=== PATIENT | female | born 1935 | race Caucasian/White ===

== ENCOUNTER 2017-04-29 11:27 | Inpatient (IN) ==
[2017-04-29] MEDS ORDERED: ASPIRIN PO STA (12:46)
[2017-04-29 13:44] LABS: ALLEN TEST YES; BE 1.9 mmoll (-3.0-3.0); BLOOD TYPE ARTERIAL; DRAW SITE R RADIAL; METHB 1.1 % (0.0-1.5); MODALITY CANNULA; O2(CT) 15.7 mL/dL (15.0-23.0); PCO2(98.6) 41 mmHg (35-45); PO2(98.6) 93 mmHg (60-100); SAMPLE BLOOD; SAO2 98.5 % (95.0-100.0); THB 11.6 g/dL (11.5-17.4); pH(98.6) 7.42 (7.35-7.45)
--- NOTE | 2017-04-29 13:46 | Diag Imaging Result Doc PS360 ---
CHEST-PORTABLE - 04/29/2017 INDICATION: sob TECHNIQUE: COMPARISON: 03/16/2017 FINDINGS: Stable right-sided dialysis catheter. Stable sternotomy wires. There is worsening cardiomegaly and pulmonary vascular congestion. There is worsening ill-defined central and bibasilar interstitial infiltrates compatible with pulmonary edema/volume overload. IMPRESSION: Worsening from prior. Electronically signed by Lorenzo Andrea 04/29/2017 1:44 PM
[2017-04-29] MEDS ORDERED: VANCOMYCIN 1 GM/NS 1 GM/250 ML IVPB IV ONE (13:56)
[2017-04-29] MEDS ORDERED: TAZIDIME 2 GM in NS 100 ML IV ONE (13:56)
[2017-04-29 14:03] LABS: BASO% 0.1 % (0.0-0.8); EOS# 0.81 X1000 (0.0-0.7); EOS% 4.3 % (0.0-10.0); HEMATOCRIT 35.2 % (37.0-47.0); HEMOGLOBIN 11.5 g/dL (12.0-16.0); IMM GRAN# 0.07 X1000 (0.0-0.04); IMM GRAN% 0.4 % (0.0-0.5); LYMPH# 0.45 X1000 (1.2-3.4); LYMPH% 2.4 % (20.5-51.1); MANUAL DIFF NEEDED? NO; MCH 29.5 PG (27-31); MCHC 32.7 g/dL (33-37); MCV 90.3 FL (81-99); MONO# 1.06 X1000 (0.11-0.59); MONO% 5.6 % (1.7-9.3); MPV 11.9 FL (7.4-10.4); NEUT% 87.2 % (42.2-75.2); PLT 152 X1000 (130-400)
[2017-04-29 14:11] LABS: INR 1.27; PROTIME 13.5 Seconds (9.2-11.7)
[2017-04-29 14:27] LABS: ALBUMIN 2.6 g/dL (3.5-5.0); CALCIUM 8.5 mg/dL (8.8-10.2); MAGNESIUM 1.8 mg/dL (1.5-2.7); POTASSIUM 4.6 mmol/L (3.5-5.1); TOTAL BILIRUBIN 0.62 mg/dL (0.20-1.00); TOTAL PROTEIN 5.7 g/dL (6.3-8.3)
[2017-04-29] MEDS ORDERED: HEPARIN ONE (14:39)
[2017-04-29] MEDS ORDERED: NS 2,000 ML ONE (14:39)
[2017-04-29] MEDS ORDERED: TIGHT: 0.2 ML/HR MISC PRN (14:44)
[2017-04-29] MEDS ORDERED: HEPARIN IV PRN (14:44)
[2017-04-29] MEDS ORDERED: NS 2,000 ML MISC PRN (14:44)
--- NOTE | 2017-04-29 14:52 | PROVIDER DOCUMENTATION ---
This chart was entered by Leoncio Shen Scribe, acting as scribe for Pippa Fuller MD. HPI-Respiratory General - General Chief Complaint: Shortness of Breath Stated Complaint: SOB,FEVER,UTI Time Seen by Provider: 04/29/17 12:46 Source: patient, family Allergies/Adverse Reactions: Patient Allergies Allergy/AdvReac Type Severity Reaction Status Date / Time No Known Allergies Allergy Verified 04/14/17 12:20 Home Medications: Home Medication List Medication Instructions Recorded Confirmed Last Taken Type Levothyroxine [Synthroid] 50 microgm PO DAILY 12/15/13 04/29/17 04/29/17 09:30 History Rosuvastatin Calcium [Crestor] 20 mg PO HS 02/03/14 04/29/17 04/28/17 20:00 History Clonazepam [Klonopin] 0.5 mg PO QHS #0 tablet 02/08/14 04/29/17 04/28/17 22:30 Rx Aspirin 325 mg PO DAILY 08/24/16 04/29/17 04/28/17 22:30 History Bumetanide 2 mg PO DAILY 08/24/16 04/29/17 04/29/17 09:30 History Carvedilol [Coreg] 12.5 mg PO BID 08/24/16 04/29/17 04/29/17 09:30 History Fenofibric Acid D.r. [Trilipix] 135 mg PO HS 08/24/16 04/29/17 04/28/17 20:00 History Insulin Glargine [Lantus] 20 unit SQ DAILY 08/24/16 04/29/17 04/28/17 22:30 History Insulin Lispro [Humalog] 12 units SQ DAILY 08/24/16 04/29/17 04/28/17 13:00 History Pregabalin [Lyrica] 75 mg PO BID 08/24/16 04/29/17 04/29/17 09:30 History Ranitidine HCl [Zantac 75] 75 mg PO HS 08/24/16 04/29/17 04/28/17 22:30 History Montelukast Sodium 10 mg PO HS 03/16/17 04/29/17 04/28/17 22:30 History Amlodipine Besylate [Norvasc] 5 mg PO DAILY 04/14/17 04/29/17 04/28/17 20:00 History Hydrocodone/Acetaminophen [[place] 1 each PO Q6HR PRN #10 tablet 04/14/17 Unknown Rx 10-325 Tablet] Krill/Om-3/Dha/Epa/Phospho/Ast 1 cap PO DAILY 04/14/17 04/29/17 04/29/17 09:30 History [Megared [place]-3 Krill Oil Sfgl] - History of Present Illness-Resp Nature of Presenting Problem: Patient is a 81 y/o F that presents with one week of shortness of breath, fever/ chills, cough, and weakness. patient was recently treated for UTI with Macrobid. patient has had no n/v, abdominal pain, but reports diarrhea with blood at times. Quality of Pain: reports: tightness Severity in ED: reports: moderate Onset/Duration: reports: gradual, 1 week ago Timing: reports: still present, getting worse Context: reports: other (recent UTI) Cough Quality/Degree: reports: moderate, dry cough Episode Frequency: occasional episodes Current Respiratory Medication Therapy: Initiated see nurses note Modifying Factors: worse with: coughing Associated Symptoms: reports: cough, fever/chills, shortness of breath, short of breath. denies: headache, nasal congestion, nasal drainage, wheezing Review of Systems - Adult - REVIEW OF SYSTEMS - ADULT Constitutional: reports: chills, fever Eyes: reports: no symptoms reported Ears, Nose, Mouth & Throat: denies: ear discharge, ear pain, sinus problem, throat pain, throat swelling Cardiovascular: denies: chest pain, palpitations, syncope Respiratory: reports: cough, shortness of breath. denies: wheezing Gastrointestinal: reports: diarrhea, rectal bleeding. denies: abdominal pain, hematemesis, nausea, vomiting Genitourinary: reports: no symptoms reported Musculoskeletal: reports: muscle weakness. denies: back pain, neck pain Integumentary: reports: no symptoms reported Neurological: reports: no symptoms reported Psychiatric: reports: no symptoms reported Endocrine: reports: no symptoms reported Hematologic/Lymphatic: reports: no symptoms reported Allergic/Immunologic: reports: no symptoms reported All Other Systems: Reviewed and Negative Past History - Adult - PAST MEDICAL HISTORY-ADULT Review of Records: reports: Old Records Reviewed, Nursing Assessment Review, Medications Reviewed Cardiovascular: reports: HTN Genitourinary: reports: dialysis, ESRD, kidney disease Endocrine/Immune: reports: Diabetes, thyroid disorder - PRIOR SURGERIES/PROCEDURES Surgical/Procedure History: reports: appendectomy, EGD, colonoscopy, cholecystectomy, hysterectomy, tonsillectomy - PRIOR HOSPITALIZATIONS Prior Hospitalizations: reports: for other non-related - IMMUNIZATION STATUS Childhood Immunizations: See Nurse Assessment Flu Vaccine: See Nurse Assessment - FAMILY HISTORY Family History: reviewed, not pertinent - SOCIAL HISTORY Smoking: non-smoker Living Situation: family Physical Exam-General - PHYSICAL EXAM-ADULT Initial Vital Signs Reviewed: Yes - CONSTITUTIONAL General Appearance: alert, no apparent distress - EYES Eyes: PERRL/EOMI, pink conjunctivae - HEAD, EARS, NOSE, MOUTH & THROAT HENMT: normocephalic/atraumatic, moist mucous membranes, normal ENT inspection - NECK Neck: full range of motion, normal inspection. negative: lymphadenopathy - RESPIRATORY Respiratory: no respiratory distress, no accessory muscle use, decreased breath sounds (worse on right), crackles, rales. negative: stridor - CARDIOVASCULAR Cardiovascular: no JVD, no murmur, bradycardia - GASTROINTESTINAL (ABDOMEN) Abdominal Exam: normal bowel sounds, non tender, soft, no organomegaly, no pulsatile mass - MUSCULOSKELETAL Back Exam: no CVA tenderness, no vertebral tenderness Extremity: normal range of motion, pedal edema (bilateral lower) - SKIN Integumentary: normal color, warm/dry - NEUROLOGIC Neurologic: otolaryngologist II-XII nml as tested, no motor/sensory deficits - PSYCHIATRIC Psych/Mental Status: normal mood/affect, normal thought content, normal thought process, oriented x 3 Progress - PLAN OF CARE/RESULTS Progress/Plan/Lab Results: Vital Signs - 8 hr 04/29/17 11:31 Temperature 98.1 F Pulse Rate 58 L Respiratory Rate 20 Blood Pressure 119/38 O2 Sat by Pulse Oximetry 93 L Laboratory Results - last 24 hr 04/29/17 13:38 Specimen Type ARTERIAL Sample Site R RADIAL pH 7.42 pCO2 41 pO2 93 HCO3 26.4 H Base Excess 1.9 Oxyhemoglobin 95.3 ABG O2 Sat (Calculated) 15.7 ABG O2 Saturation 98.5 ABG Carboxyhemoglobin 2.20 ABG Methemoglobin 1.1 Miguel Test YES A-a O2 Difference 84.0 Total Hemoglobin 11.6 Lactate 0.70 Liter Flow 3.0 Blood Gas Modality CANNULA FiO2 % 32.0 Orders Category Date Time Status Cardiac Monitoring DIRECTED Care 04/29/17 12:47 Completed Oxygen Therapy- ED Nursing DIRECTED Care 04/29/17 12:47 Completed Saline Loc NOW Care 04/29/17 12:47 Active CHEST-PORTABLE [RAD] Stat Exams 04/29/17 13:28 Completed ABG [RESP] Routine Lab 04/29/17 13:38 Completed BLOOD CULTURE [BLDCUL] Stat Lab 04/29/17 13:56 Received CBC WITH ELECTRONIC DIFF [HEME] Stat Lab 04/29/17 13:25 Results CK PROFILE [SP CHEM] Stat Lab 04/29/17 13:25 Received COMPREHENSIVE METABOLIC PANEL [CHEM] Stat Lab 04/29/17 13:25 Received MAGNESIUM [CHEM] Stat Lab 04/29/17 13:25 Received PRO B-NATRIURETIC PEPTIDE Stat Lab 04/29/17 13:25 Received PROTIME WITH INR [COAG] Stat Lab 04/29/17 13:25 Received PTT [COAG] Stat Lab 04/29/17 13:25 Received TROPONIN T Stat Lab 04/29/17 13:25 Received URINALYSIS W/POSS RFLX CULT-1 [URINALYSIS] Stat Lab 04/29/17 13:29 Uncollected Aspirin Med 04/29/17 12:46 Discontinued 325 mg PO STAT STA CefTAZIDIME [Tazidime] 2 gm Med 04/29/17 13:56 Active 0.9% Sodium Chloride Inj [Ns] 100 ml IV NOW Vancomycin 1 gm/Ns Med 04/29/17 13:56 Active 1 gm in 250 ml IV NOW EKG [EKG] Stat Ther 04/29/17 12:47 Ordered Vital Signs Temp Pulse Resp BP Pulse Ox 04/29/17 11:31 98.1 F 58 L 20 119/38 93 L No Known Allergies Allergy (Verified 04/14/17 12:20) Levothyroxine [Synthroid] 50 microgm PO DAILY 12/15/13 Rosuvastatin Calcium [Crestor] 20 mg PO HS 02/03/14 Clonazepam [Klonopin] 0.5 mg PO QHS #0 tablet 02/08/14 Aspirin 325 mg PO DAILY 08/24/16 Bumetanide 2 mg PO DAILY 08/24/16 Carvedilol [Coreg] 12.5 mg PO BID 08/24/16 Fenofibric Acid D.r. [Trilipix] 135 mg PO HS 08/24/16 Insulin Glargine [Lantus] 20 unit SQ DAILY 08/24/16 Insulin Lispro [Humalog] 12 units SQ DAILY 08/24/16 Pregabalin [Lyrica] 75 mg PO BID 08/24/16 Ranitidine HCl [Zantac 75] 75 mg PO HS 08/24/16 Montelukast Sodium 10 mg PO HS 03/16/17 Amlodipine Besylate [Norvasc] 5 mg PO DAILY 04/14/17 Hydrocodone/Acetaminophen [[place] 10-325 Tablet] 1 each PO Q6HR PRN #10 tablet Krill/Om-3/Dha/Epa/Phospho/Ast [[place]egared [place]-3 Krill Oil Sfgl] 1 cap PO DAILY 04/14/17 Laboratory 04/29/17 13:38 Specimen Type ARTERIAL Sample Site R RADIAL pH 7.42 pCO2 41 pO2 93 HCO3 26.4 H Base Excess 1.9 Oxyhemoglobin 95.3 ABG O2 Sat (Calculated) 15.7 ABG O2 Saturation 98.5 ABG Carboxyhemoglobin 2.20 ABG Methemoglobin 1.1 Miguel Test YES A-a O2 Difference 84.0 Total Hemoglobin 11.6 Lactate 0.70 Liter Flow 3.0 Blood Gas Modality CANNULA FiO2 % 32.0 pt will be admitted to Hospital Result Diagrams: 04/29/17 13:25 - EKG 1 Time of EKG reading by physician:: 11:32 EKG Read and Signed by:: Ba Dennis Jr EKG Interpretation (*Must complete 3 of following elements*): Abnormal Rate: 60 Rhythm: Sinus Rhythm with PACs [place]: normal QRS: RBB NM Interval: normal ST Wave: normal - XRAY 1 XRAY Study: Chest Impression: Abnormal XRAY Interpretation: worsening infiltrates w pulmonary edema/volume overload - CONSULTS/PCP/HOSPITALIST Notification #1 *Consult/PCP/Hospitalist*: Reason/Comments: give antibiotics, admit to PCP Consult Disposition: Admit #2 Consult: Time Discussed: 14:01 Reason/Comments: admit, will write prelim orders Consult Disposition: Admit Departure - Departure Date of Disposition Decision: 04/29/17 Time of Disposition Decision: 14:03 DIAGNOSIS: Chronic kidney disease (CKD) stage G5/A1, glomerular filtration rate (GFR) less than or equal to 15 mL/min/1.73 square meter and albuminuria creatinine ratio less than 30 mg/g Sepsis Qualifiers: Sepsis type: sepsis due to unspecified organism Qualified Code(s): A41.9 - Sepsis, unspecified organism Disposition: ADMITTED INPATIENT Certified Medical Emergency: Emergent Condition: Stable Referrals and Follow-Ups: Desmond Michel Jr, MD [Primary Care Provider] - - Critical Care Note This patient required my direct & personal management of CC.: Yes Total Time (mins): 45 Critical Care Statement: This patient required my direct personal management to treat or rule out processes, the absence of which, could potentiallly result in sudden, clinically significant life or limb threatening deterioration. Attestation - Physician/ GEORGE Attestation The physician spent face to face time with patient:: Yes Advanced Practice Provider documentation review:: Supervising physician onsite and consulted in the evaluation and care of this patient. The physician did have a face to face encounter with the patient. This chart was documented by the indicated scribe, (Leoncio Shen, Scribe) and accurately reflects the services I performed and decisions made by me, Pippa Fuller MD, as attested by the provider's signature.
[2017-04-29 15:05] LABS: URINE SOURCE CATH
[2017-04-29 15:12] LABS: BILIRUBIN URINE NEGATIVE (NEGATIVE); BLOOD URINE SMALL (NEGATIVE); COLOR ORANGE; GLUCOSE URINE NEGATIVE (NEGATIVE); LEUKOCYTES URINE LARGE (NEGATIVE); NITRITE URINE NEGATIVE (NEGATIVE); PH URINE 5.5; PROTEIN URINE 50 mg/dL (NEGATIVE); SP GRAVITY URINE 1.007; TURBIDITY URINE TURBID (CLEAR); UROBILINOGEN URINE NORMAL (NORMAL)
--- NOTE | 2017-04-29 15:12 | EKG Report ---
Test Performed on : 04/29/2017 11:32:20 AM Test Reason : Chest Pain Blood Pressure : / mmHG Vent. Rate : 060 BPM Atrial Rate : 061 BPM P-R Int : 134 ms QRS Dur : 122 ms QT Int : 410 ms P-R-T Axes : -27 029 003 degrees QTc Int : 410 ms Sinus rhythm. with premature atrial complexes. Right bundle branch block Abnormal ECG When compared with ECG of 26-MAR-2017 05:36, premature atrial complexes. are now present T wave inversion no longer evident in Anterior leads Unconfirmed Result
[2017-04-29 15:14] LABS: URINE MICRO REVIEW NEEDED? YES
[2017-04-29 15:16] LABS: UR EPITHELIAL CELLS <10 /HPF (<10); URINE BACTERIA 4+ /HPF; URINE CULTURE NEEDED? YES; URINE RBC <10 /HPF (<10); URINE WBC TNTC /HPF (<10)
--- NOTE | 2017-04-29 16:12 | CONSULTATION ---
DATE OF CONSULTATION: 04/29/2017 REASON FOR ADMISSION: Fever with chills and weakness. REASON FOR CONSULT: End-stage renal disease with assistance with medical management. HISTORY OF PRESENT ILLNESS: Ms. Avilse is an 81-year-old white female who is known to our outpatient services for hemodialysis on Thursday, Thursday, Thursday at the [facility]. She has recently started dialysis in the last 3-4 weeks. She has a fistula to the left forearm that has not matured yet and is currently being followed by Dr. Sidhu. She has a tunneled catheter to the right chest wall and has been receiving dialysis routinely and has been doing well. Unfortunately, the patient states that she has started running a low-grade temperature at home for the last 2 weeks, starting 2 weeks ago Thursday. She states that on Thursday evening when she was at dialysis, she ran a low-grade of 99.4 degrees. She states that she does not remember if she has told the dialysis nurses that she has been running this temperature or not. She has had a positive fever and chills. Positive nausea. No emesis. Some diarrhea. No recent falls. No chest pain. Some increased work of breathing. She states that she does have some blurred vision upon standing every a.m. She does make urine. She has not noticed any foul odor or discoloration to her urine in the last 24-48 hours. She states that these symptoms have gotten worse and that nothing has necessarily helped to improve. PAST MEDICAL HISTORY: Positive for end-stage renal disease with hemodialysis on Thursday, Thursday, Thursday, hypertension, diabetes mellitus type 2. She has hypothyroidism. She has hyperparathyroidism, anemia of chronic disease. PAST SURGICAL HISTORY: Positive for appendectomy, EGD, colonoscopy, cholecystectomy, hysterectomy and tonsillectomy. SOCIAL HISTORY: She lives alone. She has family who are attentive to her care. She is a nonsmoker. No alcohol. No illicit drug use. She has recently lost her at the end of last year, beginning of September and states that at that time is when her condition started to worsen secondary to not taking care of herself. FAMILY HISTORY: No end-stage renal disease. Positive for hypertension and coronary artery disease. CURRENT ALLERGIES: Listed as no known drug allergies. MEDICATIONS: Synthroid, Crestor, Klonopin, aspirin, bumetanide, Coreg, Trilipix , Lantus, Humalog, Lyrica, Zantac, Singulair, Norvasc, [place], and omega-3. Patient also receives Aranesp, Rocaltrol, Proteinex, and IV iron as indicated at the outpatient clinic. REVIEW OF SYSTEMS: Times 10 with pertinent positives listed above in the HPI. LABORATORY: Sodium 133, potassium 4.6, chloride 93, CO2 25, BUN 64, creatinine 4.4, glucose 147. Her anion gap is 15, calcium 8.5, magnesium 1.8. Albumin 2.6. White count 18.88, hemoglobin 11.5, hematocrit 35.2, with a platelet count of 152,000. She has a PT of 13.5 with an INR of 1.27 and a PTT of 34. Her BNP is 12,856. ABGs on room air, PH 7.42, CO2 41, PO2 93 , bicarb 26.4. This was on room air. The patient currently has urine culture and blood cultures currently pending. IMAGING: Her chest x-ray has been completed. It indicates that there is worsening of pulmonary vascular congestion with central and bibasilar interstitial infiltrates, pulmonary edema with fluid volume overload positive. PHYSICAL EXAMINATION: General: This is an 81-year-old white female. She appears chronically ill. She is in no acute distress. Vital Signs: Temperature 98.1 degrees, blood pressure 152/69, heart rate 57, respirations 18, she is on 3 L nasal cannula. Last recorded saturation is 97%. She has only had 50 mL out. This was per straight cath. Skin: Warm and dry. HEENT: Normocephalic, atraumatic. Conjunctivae is pale. She has MARIKA. Mucous membranes are dry. Neck: Supple. Trachea midline. No JVD. Cardiovascular: Regular rate and rhythm. She is without murmur or gallop. Lungs: Diminished breath sounds to the bases. She remains on O2. Equal excursion. Abdomen: Large, round, soft, nontender. Positive bowel sounds. Genitourinary: Not inspected. Minimal void with dialysis assist. Integumentary: No rashes or lesions noted. Skin is warm and dry. Extremities: No edema, no clubbing or cyanosis. Neurological : She is alert and oriented x3. ASSESSMENT AND PLAN: 1. End-stage renal disease. Patient is due for her routine dialysis treatment today. She has already had blood cultures drawn. She has had a chest x-ray completed showing pulmonary edema. No pneumonia noted. She has urinary cultures pending and blood cultures to be resulted. We will plan for patient to have dialysis we will place her on a 2 K bath. She is to dialyze for 3-1/2 hours. We will attempt to pull patient to her dry weight. After treatment we will give 1 g of vancomycin and 2 g of Fortaz to resume with 1 g of vancomycin and 1 g of Fortaz after each dialysis treatment until cultures are resulted. 2. Fever. This is of unknown origin secondary to patient having a tunnel catheter to the right chest wall. Again, we will plan for treatments as mentioned for her dialysis treatment with vancomycin and Fortaz. 3. Electrolytes. These are stable. 4. Acid-base balance. This is stable. 5. Anemia. This remains stable. I would like to thank you for allowing us to follow with this patient. Patient seen, data reviewed, discussed with Kiesha Bailey on 04/29/17. I agree with the above assessment and plan of care. rg Dictated by ANGIE Turpin for Declan Lind MD cc: ANGIE Turpin MD Roger H. Moss Jr, MD MTDD
[2017-04-29] MEDS ORDERED: MORPHINE IV PRN (16:41)
[2017-04-29] MEDS ORDERED: TYLENOL PO PRN (16:41)
[2017-04-29] MEDS ORDERED: ZOFRAN IV PRN (16:41)
[2017-04-29] MEDS ORDERED: NORCO-10 PO PRN (17:30)
[2017-04-29] MEDS: COREG PO SCH ×2 (20:32→20:41)
[2017-04-29] MEDS: LYRICA PO SCH (20:32)
[2017-04-29] MEDS: TRILIPIX PO SCH (20:32)
[2017-04-29] MEDS: KLONOPIN PO SCH (20:32)
[2017-04-29] MEDS: SINGULAIR PO SCH (20:32)
[2017-04-29] MEDS: CRESTOR PO SCH (20:32)
[2017-04-29] MEDS: ZANTAC PO SCH (20:32)
--- NOTE | 2017-04-29 20:39 | CONSULTATION ---
DATE OF CONSULTATION: 04/29/2017 REASON FOR ADMISSION: Fever with chills and weakness. REASON FOR CONSULT: End-stage renal disease with assistance with medical management. HISTORY OF PRESENT ILLNESS: Ms. Aviles is an 81-year-old white female who is known to our outpatient services for hemodialysis on Thursday, Thursday, Thursday at the [facility]. She has recently started dialysis in the last 3-4 weeks. She has a fistula to the left forearm that has not matured yet and is currently being followed by Dr. Sidhu. She has a tunnel catheter to the right chest wall and has been receiving dialysis routinely and has been doing well. Unfortunately, the patient states that she has started running a low-grade temperature at home for the last 2 weeks, starting two weeks ago Thursday. She states that on Thursday evening when she was at dialysis she ran a low-grade of 99.4 degrees. She states that she does not remember if she has told the dialysis nurses that she has been running this temperature or not. She has had positive fever and chills, positive nausea, no emesis. Some diarrhea. No recent falls. No chest pain. Some increased work of breathing. She states that she does have some blurred vision upon standing every a.m. She does make urine. She has not noticed any foul odor or discoloration to her urine in the last 24-48 hours. She states that these symptoms have gotten worse and that nothing has necessarily helped to improve. PAST MEDICAL HISTORY: Positive for end-stage renal disease with hemodialysis on Thursday, Thursday, Thursday, hypertension, diabetes mellitus type 2. She has hypothyroidism. She has hyperparathyroidism. Anemia of chronic disease. PAST SURGICAL HISTORY: Positive for appendectomy, EGD, colonoscopy, cholecystectomy, hysterectomy and tonsillectomy. SOCIAL HISTORY: She lives alone. She has family who is attentive to her care. She is a nonsmoker. No alcohol. No illicit drug use. She has recently lost her at the end of last year at the beginning of September and states that at that time is when her condition started to worsen secondary to not taking care of herself. FAMILY HISTORY: No end-stage renal disease. Positive for hypertension and coronary artery disease. CURRENT ALLERGIES: No known drug allergies. MEDICATIONS: Synthroid. Crestor. Klonopin. Aspirin. Bemitradine. Coreg. Trilipix. Lantus. Humalog. Lyrica. Zantac. Singulair. Norvasc. [place]. Ar[place]-3. Patient also receives Aranesp, Rocaltrol, Proteinex, and IV iron as indicated at the outpatient clinic. REVIEW OF SYSTEMS: Times 10 with pertinent positives listed above in the HPI. LABORATORY: Sodium 133, potassium 4.6, chloride 93, CO2 25, BUN 64, creatinine 4.4, glucose 147. Her anion gap is 15. Calcium 8.5, magnesium 1.8. Albumin 2.6. White count 18.88, hemoglobin 11.5, hematocrit 35.2, with a platelet count of 152,000. She has a PT of 13.5 with an INR of 1.27 and a PTT of 34. Her BNP is 12,856. ABGs on room air: PH 7.42, CO2 41, PO2 93 , bicarb 26.4. This was on room air. The patient currently has urine culture and blood cultures currently pending. IMAGING: Her chest x-ray has been completed. It indicates that there is worsening of pulmonary vascular congestion with central and bibasilar interstitial infiltrates, pulmonary edema with fluid volume overload positive. PHYSICAL EXAMINATION: General: This is an 81-year-old white female. She appears chronically ill. She is in no acute distress. Vital Signs: Temperature 98.1 degrees, blood pressure 152/69, heart rate 57, respirations 18. She is on 3 L nasal cannula. Last recorded saturation is 97%. She has only had 50 mL out. This was per straight. Skin: Warm and dry. HEENT : Normocephalic, atraumatic. Conjunctivae pale. She has MARIKA. Mucous membranes are dry. Neck : Supple. Trachea midline. No JVD. Cardiovascular: Regular rate and rhythm. She is without murmur or gallop. Lungs: Diminished breath sounds to the bases. She remains on O2. Equal excursion. Abdomen: Large, round, soft, nontender. Positive bowel sounds. Genitourinary: Not inspected. Minimal void with dialysis assist. Integumentary: No rashes or lesions noted. Skin is warm and dry. Extremities: No edema. No clubbing or cyanosis. Neurological: She is alert and oriented x3. ASSESSMENT AND PLAN: 1. End-stage renal disease. Patient is due for her routine dialysis treatment today. She has already had blood cultures drawn. She has had a chest x-ray completed showing pulmonary edema. No pneumonia noted. She has urinary cultures pending and blood cultures to be resulted. We will plan for patient to have dialysis. We will place her on a 2K bath. She is to dialyze for 3-1/2 hours. We will attempt to pull patient to her dry weight. After treatment, we will give 1 g of vancomycin and 2 g of Fortaz to resume with 1 g of vancomycin and 1 g of Fortaz after each dialysis treatment until cultures are resulted. 2. Fever. This is of unknown origin secondary to patient having a tunnel catheter to the right chest wall. Again, we will plan for treatments as mentioned for her dialysis treatment with vancomycin and Fortaz. 3. Electrolytes. These are stable. 4. Acid-base balance. This is stable. 5. Anemia. This remains stable. I would like to thank you for allowing us to follow with this patient. Patient seen, data reviewed, discussed with Kiesha Bailey on 04/29/17. I agree with the above assessment and plan of care. rg Dictated by ANGIE Turpin for Declan Lind MD cc: ANGIE Turpin MD Roger H. Moss Jr, MD MTDD
[2017-04-29] MEDS: HUMULIN R SUBQ SCH (23:20)
--- NOTE | 2017-04-29 23:38 | HISTORY AND PHYSICAL ---
CHIEF COMPLAINT: Fever. PRESENT ILLNESS: The patient is an 81-year-old white female dialysis patient who had been treated for a urinary tract infection recently at the office and grew out E. coli that was sensitive to all antibiotics tested and had been placed on Macrobid. She tells me she has been taking it because she has spiked 103 temp this morning at home and came to the emergency room. Patient has had CHF as well. The patient has been short of breath today. Apparently has had some bloody diarrhea as well. PAST HISTORY: Hyperlipidemia, CAD, AODM, hypothyroidism, peripheral neuropathy, chronic kidney disease stage 5, vitamin B12 deficiency, peripheral vascular disease with her carotids, chronic anemia, mild stress incontinence. MEDICATIONS: Please see medication list. SURGICAL HISTORY: Includes appendectomy, EGD, colonoscopy, cholecystectomy, hysterectomy and tonsillectomy. SOCIAL HISTORY: She is a nonsmoker. FAMILY HISTORY: Unrevealing. REVIEW OF SYSTEMS: Neurological: Denies headaches, seizures, visual problems, hearing problems. Pulmonary: Has been short of breath but with no cough. A chest x-ray did show pulmonary congestion consistent with congestive heart failure, pulmonary edema. Cardiovascular: Denies any chest pain. Gastrointestinal: Denies any hematochezia, hematemesis, melena. Did report in the emergency room that she had some diarrhea with blood. Genitourinary: Has mild urinary incontinence. Musculoskeletal: Has had some back pains and osteoarthritis. Back pain was treated recently with steroids and she is not having any right now. Psychiatric: Has had no depression or anxiety. PHYSICAL EXAMINATION: VITAL SIGNS: Temp 98.1 degrees Fahrenheit, pulse 58 and regular, respirations 20, blood pressure 119/38, O2 saturations 93% on room air. Blood gas showed a pH of 7.42, pCO2 41, PO2 93 on 32% FiO2. EKG shows sinus rhythm with PACs and right bundle branch block. Chest x-ray showed pulmonary edema and fluid overload. HEENT: She is normocephalic. EOMs intact. PERRLA. Throat clear. LUNGS: Have a few rales in the bases bilaterally. HEART: Regular rate and rhythm without murmurs, gallops, or friction rubs to a bradycardia. ABDOMEN: Soft with active bowel sounds. No organomegaly or tenderness. PELVIC: Exam is deferred. RECTAL: Exam deferred. BREAST: Exam deferred. INTEGUMENT: Shows no lesions consistent with melanoma or skin cancer. EXTREMITIES: She does have 3+ pitting edema of the lower extremities. NEUROLOGICAL: Exam is intact grossly. LABORATORY STUDIES: White count is 18,800. ASSESSMENT: 1. Possible sepsis. 2. Urinary tract infection. Urinalysis showed WBCs too numerous to count. 3. Pulmonary edema/congestive heart failure. 4. Renal failure. SECONDARY DIAGNOSES: 1. Hypertension. 2. Hypothyroidism. 3. Diabetes mellitus. 4. Coronary artery disease. 5. Peripheral vascular disease. PLAN: We will start on vancomycin and Fortaz. Have consulted Nephrology and Infectious Disease. We will try to get stool cultures. Also should be noted the patient wants to be Level 1 no code blue and she is competent. cc: Desmond Michel Jr, MD
[2017-04-30 07:15] LABS: MANUAL DIFF NEEDED? NO
[2017-04-30 07:25] LABS: BASO% 0.2 % (0.0-0.8); EOS# 1.02 X1000 (0.0-0.7); HEMOGLOBIN 11.2 g/dL (12.0-16.0); IMM GRAN# 0.03 X1000 (0.0-0.04); IMM GRAN% 0.2 % (0.0-0.5); LYMPH# 0.75 X1000 (1.2-3.4); LYMPH% 5.1 % (20.5-51.1); MCH 29.2 PG (27-31); MCV 91.1 FL (81-99); MONO# 0.77 X1000 (0.11-0.59); MONO% 5.3 % (1.7-9.3); MPV 11.4 FL (7.4-10.4); NEUT% 82.2 % (42.2-75.2); PLT 170 X1000 (130-400); RBC 3.84 XMIL (4.2-5.4)
[2017-04-30 07:44] LABS: ALBUMIN 2.7 g/dL (3.5-5.0); POTASSIUM 3.7 mmol/L (3.5-5.1)
[2017-04-30] MEDS ORDERED: INSULIN PEN NEEDLES ONE (08:23)
--- NOTE | 2017-04-30 09:08 | PROGRESS NOTE ---
DATE: 04/30/2017 SUBJECTIVE: Ms. Aviles is resting quietly in bed. She states that she is feeling much better. She actually felt better after her dialysis treatment yesterday. She denies any chest pain or increased work of breathing. She states that she is still having chills. OBJECTIVE: Vital Signs: Temperature is 98.5 degrees, blood pressure 145/96, heart rate 69, respirations are 14. She is on room air. Last recorded 90%. She has had 450 in, 2.7 L off on dialysis with 15 mL of straight cath yesterday in the ER. Laboratory Data: Sodium 140, potassium 3.7, chloride is 98, CO2 29, BUN 42, creatinine 3.3, glucose 89, her anion gap is 13, calcium is 8, phosphorus 3.9, albumin 2.7. White count 14.57, hemoglobin 11.2, hematocrit 35, platelet count 170,000. Physical Examination: General: This is an 81-year-old, white female. She is currently resting in bed. She is in no acute distress, though she does appear chronically ill. Skin: Warm and dry. HEENT: Normocephalic, atraumatic. Conjunctivae are pale. She has MARIKA. Mucous membranes are dry. Neck: Supple. Trachea midline. No JVD. Cardiovascular: She is regular rate and rhythm. She is without murmur or gallop. Lungs: Clear to auscultation anteriorly. Equal excursion. Abdomen: Round, soft, nontender. Positive bowel sounds. Extremities: Have no edema. No clubbing or cyanosis. Genitourinary: Not inspected. Minimal void with dialysis assist. Neurological: She is alert and oriented x3. ASSESSMENT AND PLAN: 1. End-stage renal disease. Patient had her routine dialysis treatment yesterday. She had 2.7 L removed. She is in no acute distress today. No further indications for intervention. 2. Fever of unknown origin. Patient does have a tunneled catheter to the right chest wall. Her fistula was placed on 03/26/[address] Sidhu. This is only 5 weeks old. We still have blood cultures and urine cultures pending. She remains on renal dosed antibiotics as precautionary. 3. Electrolytes and acid-base balance. These are stable. 4. Anemia. This remains stable. I would to thank you for allowing us to follow with this patient. Patient seen, data reviewed, discussed with Kiesha Bailey on 04/30/17. I agree with the above assessment and plan of care. rg Dictated by ANGIE Turpin for Declan Lind MD cc: ANGIE Turpin MD Roger H. Moss Jr, MD MTDD
--- NOTE | 2017-04-30 09:08 | CONSULTATION ---
DATE OF CONSULTATION: 04/30/2017 CONCLUSION: The patient has been having fever and chills for the past 3-4 weeks. I think this is from an infection originating from his dialysis catheter. Dr. Michel informed me that the patient has grown E. coli from her urine. The patient passes very little urine and she had not been having dysuria, so I doubt the urinary tract infection is the cause of the patient's fever and chills. The patient had 1 day where she had 1 loose stool with some red blood in it. This occurred only once and she is not having any problem now so I doubt she has a GI tract infection or involvement by Clostridium difficile. The patient's chest x-ray does show bilateral infiltrates but it appears the x-ray is most compatible with pulmonary edema rather than pneumonia. RECOMMENDATIONS: I agree with decision to treat the patient with vancomycin and ceftazidime pending culture results. Dr. Michel told me that he had a culture from the urine and E coli which was susceptible to all the antibiotics tested so that even if the urinary tract infection is not causing the patient's fever and chills, she will be treated for it a based on the fact that currently she is on ceftazidime. DISCUSSION: The patient approximately 3-4 weeks ago started having fever and chills. As mentioned above, she had 1 day where she had a loose stool with some blood in it but this has not recurred. She has had her urine cultured and it grew E. coli but the patient says she is not having any dysuria or flank pain. LABORATORY STUDIES: Thus [place] [address] ,hemoglobin 11.5, and platelet count 152,000. Chest x-ray is most compatible with pulmonary edema. Creatinine is 4.4, GFR is 10. The ALT is 39. PAST MEDICAL HISTORY: Ob-Cook Night History: She is a 2 para 2 AB 0. She has had a hysterectomy. PREVIOUS HOSPITALIZATIONS AND OPERATIONS: She has had labor and deliveries, a hysterectomy, a cholecystectomy, coronary artery bypass grafting and and insertion of a right tunneled dialysis catheter. MEDICAL DISEASES: Positive for coronary artery disease, skin cancer hypothyroidism ostial arthritis neuropathy of the feet and hands. The patient has end-stage renal disease and dialyzes 3 times a week. INFECTIOUS DISEASE HISTORY: Positive for pneumonia and UTI. FAMILY HISTORY: Positive for hypertension and cancer. SOCIAL HISTORY: [place] She is a . She lives alone. She does not have any pets. ALLERGIES: She is not allergic to any medications. HOME MEDICATIONS: 1. Crestor 2. Zantac 3. Lyrica 4. Montelukast 5. Synthroid 6. Humalog 7. Lantus 8. Hydrocodone 9. Trilipix 10. Klonopin 11. Coreg 12. Bumetanide 13. Aspirin 14. Amlodipine PHYSICAL EXAMINATION: Vital Signs: Temperature is 98.5 degrees, pulse 69, respirations 14, blood pressure 1445/96. General: This is a somewhat ill-appearing elderly female. She is in no acute distress at this time. HEENT: She can hear my spoken words and see near objects. I did not notice any lesions in her mouth. Neck: No meningismus. Thorax: Patient has a dialysis catheter present on the right side. The site is not erythematous or swollen. Lungs: Clear to auscultation. Cardiovascular: Regular heart rate. Abdomen: Soft and flank soft and nontender. Neurologic: Patient is alert. She can move her extremities. There is no tremor. Her sensation is intact to touch. Her memory, as regarding her medical history seemed to be good. REVIEW OF SYSTEMS: Eyes and Ears: Patient denies difficulty hearing or seeing. Neck: No stiffness. Respiratory: Patient states for the past year she is had dyspnea. She is not coughing or having chest pain. Cardiovascular: No chest pain or palpitations. GI: No nausea or vomiting. As mentioned above, 2 days ago she had 1 loose stool with some blood in it and none since. Genitourinary: Patient passes very little urine because she is on dialysis. She told me that it does not burn or sting when she does pass it now. Endocrine: Patient has hypothyroidism and she is diabetic. Neurologic: Patient says she has paresthesias in her feet and hands man tested by numb or tingling. She does not have any seizures. Joints and Muscles: She does not have any swollen joints or myalgias. Thank you for the consult. cc: MD Desmond Aguilar Jr, MD
--- NOTE | 2017-04-30 09:26 | PROGRESS NOTE ---
DATE: 04/30/2017 SUBJECTIVE: Patient says she feels a little short of breath this morning. She felt better with her breathing after dialysis yesterday but this morning has become a little bit more short of breath. She has had a history of congestive heart failure and did come in, in pulmonary edema. She has had no fever since she has been here in the hospital but had a 103 temperature at home. OBJECTIVE: Vital Signs: Blood pressure is 145/96, respirations 18, pulse 69, temperature 98.5 degrees Fahrenheit. HEENT: She is normocephalic. EOMs intact. PERRLA. Throat clear. Lungs: Lungs sound fairly clear to auscultation. Heart: Regular rate and rhythm without murmurs, gallops, or friction rubs. Abdomen: Soft. Active bowel sounds. No organomegaly or tenderness. Neurological: Examination intact grossly. Laboratory Data: ProBNP was a little over 12,000. ASSESSMENT: 1. Rule out sepsis. 2. Urinary tract infection. 3. Pulmonary edema/congestive heart failure. 4. Coronary artery disease. PLAN: We will get an echocardiogram and a chest x-ray. We will evaluate to see if she needs to be back on oxygen. Her O2 saturation was 90%. cc: Desmond Michel Jr, MD
[2017-04-30] MEDS: HUMULIN R SUBQ SCH ×4 (11:30→21:17)
--- NOTE | 2017-04-30 11:30 | Diag Imaging Result Doc PS360 ---
EXAM: CHEST-PORTABLE INDICATION: chf TECHNIQUE: One view COMPARISON: 04/29/2017 FINDINGS: The right Vas-Cath is in stable position. The interstitial edema and pulmonary venous congestion appears to have improved slightly during the interval. No new consolidations are appreciated. The cardiac silhouette is stable. IMPRESSION: Interval improvement of the mild pulmonary edema and pulmonary venous congestion. Electronically signed by Min Salguero 04/30/2017 11:28 AM
[2017-04-30] MEDS: FISH OIL CONCENTRATE PO SCH (11:53)
[2017-04-30] MEDS: COREG PO SCH ×2 (11:53→21:18)
[2017-04-30] MEDS: ASPIRIN PO SCH (11:53)
[2017-04-30] MEDS: BUMEX PO SCH (11:53)
[2017-04-30] MEDS: HUMALOG SUBQ SCH (11:54)
[2017-04-30] MEDS: SYNTHROID PO SCH (11:56)
[2017-04-30] MEDS: NORVASC PO SCH (11:57)
[2017-04-30] MEDS: LYRICA PO SCH ×2 (11:59→21:18)
[2017-04-30] MEDS: LANTUS SUBQ SCH (21:17)
[2017-04-30] MEDS: TRILIPIX PO SCH (21:18)
[2017-04-30] MEDS: ZANTAC PO SCH (21:18)
[2017-04-30] MEDS: CRESTOR PO SCH (21:18)
[2017-04-30] MEDS: KLONOPIN PO SCH (21:18)
[2017-04-30] MEDS: SINGULAIR PO SCH (21:18)
--- NOTE | 2017-05-01 04:46 | ECHO REPORT ---
ORDER DATE: 04/30/2017 MEASUREMENTS: Left ventricular end-diastolic diameter 4.9, systolic diameter 2.7, septal thickness 1.1, posterior wall thickness 1.1, left atrium 5.6, aortic root 2.5. SUMMARY: 1. Adequate quality study. 2. Mild sclerosis of trileaflet aortic valve demonstrated, with adequate aortic valve opening evident. Peak gradient across the aortic valve is 12 mmHg. Mitral, tricuspid, and pulmonic valves are without structural abnormality, with mild mitral regurgitation, moderate tricuspid regurgitation, and mild pulmonic insufficiency. Estimated systolic PA pressure by Doppler is 60-65 mmHg. The aortic root is normal in size. 3. Normal left ventricular chamber size with borderline concentric left hypertrophy is demonstrated. Estimated left ejection fraction is greater than 70%. No regional wall motion abnormalities are evident. Moderate left atrial enlargement is demonstrated. Right atrium and right ventricle are normal size, with normal right ventricular systolic function. 4. No pericardial effusion. 5. Appearance of inferior vena cava suggests normal central venous pressure. 6. Intravenous echo contrast agent Definity was administered during study to further enhance endocardial definition for purposes of left ventricular ejection fraction assessment and regional wall motion evaluation. cc: MD Desmond Hurtado Jr, MD
[2017-05-01] MEDS: HUMULIN R SUBQ SCH ×2 (06:25→13:16)
[2017-05-01 06:26] LABS: MANUAL DIFF NEEDED? NO
[2017-05-01 06:32] LABS: BASO% 0.2 % (0.0-0.8); EOS# 1.33 X1000 (0.0-0.7); EOS% 13.4 % (0.0-10.0); HEMATOCRIT 34.2 % (37.0-47.0); HEMOGLOBIN 11.2 g/dL (12.0-16.0); IMM GRAN# 0.02 X1000 (0.0-0.04); IMM GRAN% 0.2 % (0.0-0.5); LYMPH# 1.14 X1000 (1.2-3.4); LYMPH% 11.5 % (20.5-51.1); MCH 29.3 PG (27-31); MCHC 32.7 g/dL (33-37); MCV 89.5 FL (81-99); MONO# 0.78 X1000 (0.11-0.59); MONO% 7.9 % (1.7-9.3); MPV 11.3 FL (7.4-10.4); NEUT% 66.8 % (42.2-75.2); PLT 180 X1000 (130-400); RBC 3.82 XMIL (4.2-5.4)
[2017-05-01 06:59] LABS: ALBUMIN 2.5 g/dL (3.5-5.0); CALCIUM 8.3 mg/dL (8.8-10.2); POTASSIUM 4.4 mmol/L (3.5-5.1)
[2017-05-01] MEDS ORDERED: NS 2,000 ML MISC PRN (07:01)
[2017-05-01] MEDS ORDERED: TIGHT: 0.2 ML/HR MISC PRN (07:01)
[2017-05-01] MEDS ORDERED: HEPARIN IV PRN (07:01)
[2017-05-01] MEDS ORDERED: HEPARIN ONE ×2 (07:35→08:40)
[2017-05-01] MEDS ORDERED: NS 2,000 ML ONE ×2 (07:35→08:40)
[2017-05-01] MEDS ORDERED: VANCOMYCIN 1 GM/NS 1 GM/250 ML IVPB IV SCH (09:00)
--- NOTE | 2017-05-01 09:09 | PROGRESS NOTE ---
DATE: 05/01/2017 SUBJECTIVE: She is feeling better. She has not had any fevers or chills. No shortness of breath on room air. OBJECTIVE: Vital Signs: Blood pressure 141/42, heart rate 57, respirations 20, afebrile. General: On physical exam, no acute distress. Skin: Warm and dry. Eyes: Conjunctivae are pink. Neck: Neck veins are not appreciated. Heart: Regular without gallops or murmurs. Lungs: Have equal breath sounds. No crackles or wheezes. Abdomen: Soft, nontender. Bowel sounds are present. Extremities: Have 2+ edema. No clubbing or cyanosis. LABORATORY DATA: Sodium 137, potassium 4.4, chloride 94, bicarbonate 27, BUN 67, creatinine 4.2, hemoglobin 11.2. IMPRESSION: 1. Acute febrile illness. Blood cultures are negative and stool cultures negative. Urine is growing Escherichia coli which is sensitive to both oral and intravenous antibiotics and extended spectrum beta lactamase-negative. 2. Extended spectrum beta lactamase-negative. From my perspective, she can certainly be discharged home on oral antibiotics. She can take Bactrim DS one daily to complete her course. If you desire intravenous antibiotics, then please contact me and we can arrange for that at the outpatient clinic. 3. End-stage renal disease. She remains somewhat volume overloaded, so we will work on lowering her dry weight again today. However, she is on room air and tolerating it well. So, again okay for discharge from my perspective. 4. Electrolytes and acid-base in target. 5. Anemia in target. cc: MD Desmond Nino Jr, MD
[2017-05-01] MEDS ORDERED: TAZIDIME 1 GM in NS 50 ML IV SCH (10:00)
[2017-05-01] MEDS: FISH OIL CONCENTRATE PO SCH (13:16)
[2017-05-01] MEDS: COREG PO SCH (13:16)
[2017-05-01] MEDS: NORVASC PO SCH (13:16)
[2017-05-01] MEDS: ASPIRIN PO SCH (13:16)
[2017-05-01] MEDS: LYRICA PO SCH (13:16)
[2017-05-01] MEDS: SYNTHROID PO SCH (13:16)
[2017-05-01] MEDS: BUMEX PO SCH (13:17)
[2017-05-01] MEDS: LANTUS SUBQ SCH (13:21)
[2017-05-01] MEDS: HUMALOG SUBQ SCH (13:22)
[2017-05-01 13:54] VITALS: BP 152/56
--- NOTE | 2017-05-01 16:20 | DISCHARGE SUMMARY ---
ADMISSION DATE: 04/29/2017 DISCHARGE DATE: 05/01/2017 FINAL DIAGNOSES: 1. Urinary tract infection. 2. Fever. 3. Pulmonary edema. 4. Renal failure. 5. Adult onset diabetes mellitus. 6. Hypothyroidism. 7. Coronary artery disease. 8. Peripheral vascular disease carotids. 9. Chronic anemia. 10. Hyperlipidemia. CONSULTATIONS: 1. Declan Lind MD of Nephrology. 2. Antonio Mathew MD of Infectious Disease. DISCHARGE MEDICATIONS: We will discharge home on home medications plus Bactrim DS 1 p.o. b.i.d. for 10 days. HISTORY OF PRESENT ILLNESS: The patient is an 81-year-old, white female on dialysis who came in with fluid overload and fever up to 103 degrees Fahrenheit at home. She had been on Macrobid for a urinary tract infection that grew out E. coli that we have been treating at the office. The culture report at that time showed that it was sensitive to all antibiotics and she had been started on Macrobid. We thought that she might have an infected catheter for her dialysis when she came in but we repeated her urinalysis and she had WBCs too numerous to count. Urine culture again grew E. coli but it was not sensitive to Macrobid. Her blood cultures were negative. I feel like this was probably just her urinary tract infection. It is sensitive to Bactrim DS. She has been afebrile since she has been at the hospital. She had been placed on IV antibiotics initially and has responded well. We were worried about sepsis and catheter infection but I believe this was just a UTI though 103 temp may have meant that she had bacteremia but it was not caught on blood cultures. She seems to be doing well at this time and would like to go home. PHYSICAL EXAMINATION ON DISCHARGE: HEENT: She is normocephalic. PERRLA. Throat clear. Lungs: Clear to auscultation and percussion without rhonchi, rales, or wheezes which is an improvement. When she came in she had fluid overload and pulmonary edema but after dialysis this was much better. Cardiovascular: Heart is regular rate and rhythm without murmurs, gallops, or friction rubs. Abdomen: Soft. Active bowel sounds. No organomegaly or tenderness. Neurologic Examination: Intact grossly. HOSPITAL COURSE: Please note that I went ahead and did an echocardiogram because her proBNP was over 12,000 and it was essentially normal. With her being in renal failure that makes the proBNP less accurate. Probably she just had pulmonary edema from her renal failure. She is doing much better at this time. I will see her back in the office within the next week and we will repeat a urinalysis. Her breathing is much better now. cc: Desmond Michel Jr, MD
== END 2017-05-01 15:23 | disposition home or self-care (01) ==
LOC: ED 11:27 → INTOOBSV 15:23 → OBSVTOIN 15:23 → 3N 15:23
PROVIDERS: ADMIT Emergency Medicine; ATTEND Emergency Medicine